=== PATIENT | female | born 1955 | race African-American/Black ===

== ENCOUNTER 2017-10-14 14:14 | Emergency (ER) | payer SELFPAY ==
[~2017-10-14] VITALS: Ht 160 cm; Wt 68.0 kg
[~2017-10-14 14:14] MED LIST: ACULAR5 ML BOTH EYES; AMOXICILLIN500 MG ORAL; AUGMENTIN 500M500 MG ORAL; AUGMENTIN 875-1 EAC1 ORAL; BENTYL10 MG ORAL; DEBROX15 M1 BOTH EARS; DEBROX15 M1 LEFT EAR; IBUPROFEN400 MG ORAL; LISINOPRIL40 MG ORAL; LISINOPRIL5 MG ORAL; MYLANTA30 M1 PO; NORVASC5 MG ORAL; OFLOXACIN5 ML BOTH EYES; PRINIVIL10 MG ORAL; TENORMIN25 MG ORAL
--- NOTE | 2017-10-14 14:51 | Emergency Room Report ---
History of Present Illness General Chief Complaint: Hypertension Source: Patient Present Illness HPI Patient presents with complaints of general weakness Reports that she ran out of her blood pressure medication 2 months ago Has been having dizziness She also complained of visual discomfort off-and-on At time seen completely dark Denies any vomiting denies any abdominal pain Denies any dysuria frequency denies any syncopal episodes denies any focal weakness Allergies: Coded Allergies: NO KNOWN ALLERGIES (Unverified Allergy, Unknown, 04/10/15) Patient History Past Medical History: see triage record Pertinent Family History: none Reviewed Nursing Documentation: PMH: Agreed, PSxH: Agreed Nursing Documentation-PM Past Medical History: No History, Except For Hx Hypertension: Yes Review of Systems All Other Systems: negative except mentioned in HPI Physical Exam Vital Signs Date Time Temp Pulse Resp B/P (MAP) Pulse Ox O2 Delivery O2 Flow Rate FiO2 10/14/17 14:21 98.7 81 16 212/107 99 Room Air 98.8 Sp02 EP Interpretation: reviewed, normal General Appearance: well appearing, no apparent distress Head: normocephalic, atraumatic Eyes: bilateral eye PERRL, bilateral eye EOMI ENT: hearing grossly normal, normal pharynx, TMs + canals normal, uvula midline Neck: full range of motion, supple, no meningismus, no bony tend Respiratory: lungs clear, normal breath sounds, no rhonchi, no respiratory distress, no retraction, no accessory muscle use Cardiovascular #1: normal peripheral pulses, regular rate, rhythm, no edema, no gallop, no JVD, no murmur Gastrointestinal: normal bowel sounds, non tender, soft, no mass, no organomegaly, non-distended, no guarding, no hernia, no pulsatile mass, no rebound Genitourinary: no CVA tenderness Musculoskeletal: normal inspection Neurologic: oriented x3, responsive, 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, motor strength/ tone normal, sensory intact Psychiatric: mood/affect normal Skin: normal color, no rash, warm/dry, palpation normal Lymphatic: normal inspection, no adenopathy Medical Decision Making Diagnostic Impression: Primary Impression: Hypertension ER Course Patient is a fairly complex patient with multiple differential to consideration including but not limited to cardiac cardiopulmonary and vascular emergencies Patient's blood work is appropriate Blood pressure has responded to acute intervention EKG is showing some signs of abnormality however no obvious ST elevation Patient remained chest pain-free Patient reports that she became hypertensive about 16 years ago after she had moved to this country and heard news that her daughter had she has not had appropriate outpatient follow-up since then and will be working to get set up with an outpatient clinic Labs Test 10/14/17 14:50 White Blood Count 6.1 K/UL (4.8-10.8) Red Blood Count 5.08 M/UL (4.20-5.40) Hemoglobin 14.0 G/DL (12.0-16.0) Hematocrit 43.0 % (37.0-47.0) Mean Corpuscular Volume 85 FL (80-99) Mean Corpuscular Hemoglobin 27.6 PG (27.0-31.0) Mean Corpuscular Hemoglobin Concent 32.6 G/DL (32.0-36.0) Red Cell Distribution Width 12.6 % (11.6-14.8) Platelet Count 232 K/UL (150-450) Mean Platelet Volume 9.5 FL (6.5-10.1) Neutrophils (%) (Auto) 47.6 % (45.0-75.0) Lymphocytes (%) (Auto) 39.0 % (20.0-45.0) Monocytes (%) (Auto) 9.6 % (1.0-10.0) Eosinophils (%) (Auto) 2.1 % (0.0-3.0) Basophils (%) (Auto) 1.7 % (0.0-2.0) Sodium Level 144 MMOL/L (136-145) Potassium Level 3.7 MMOL/L (3.5-5.1) Chloride Level 108 MMOL/L (98-107) Carbon Dioxide Level 29 MMOL/L (21-32) Anion Gap 7 mmol/L (5-15) Blood Urea Nitrogen 11 mg/dL (7-18) Creatinine 0.8 MG/DL (0.55-1.30) Estimat Glomerular Filtration Rate > 60 mL/min (>60) Glucose Level 92 MG/DL (74-106) Calcium Level 9.3 MG/DL (8.5-10.1) Total Bilirubin 0.4 MG/DL (0.2-1.0) Aspartate Amino Transf (AST/SGOT) 24 U/L (15-37) Alanine Aminotransferase (ALT/SGPT) 37 U/L (12-78) Alkaline Phosphatase 84 U/L (46-116) Total Creatine Kinase 334 U/L (26-308) Creatine Kinase MB 4.0 NG/ML (0.0-3.6) Creatine Kinase MB Relative Index 1.1 Troponin I 0.000 ng/mL (0.000-0.056) Total Protein 7.1 G/DL (6.4-8.2) Albumin 3.9 G/DL (3.4-5.0) Globulin 3.2 g/dL Albumin/Globulin Ratio 1.2 (1.0-2.7) Lipase 122 U/L (73-393) Urine Opiates Screen Negative (NEGATIVE) Urine Barbiturates Screen Negative (NEGATIVE) Phencyclidine (PCP) Screen Negative (NEGATIVE) Urine Amphetamines Screen Negative (NEGATIVE) Urine Benzodiazepines Screen Negative (NEGATIVE) Urine Cocaine Screen Negative (NEGATIVE) Urine Marijuana (THC) Screen Negative (NEGATIVE) EKG Diagnostic Results Rate: normal Rhythm: NSR ST Segments: no acute changes Rhythm Strip Diag. Results EP Interpretation: yes Rate: 67 Rhythm: NSR, no PVC's, no ectopy Chest X-Ray Diagnostic Results Chest X-Ray Diagnostic Results : Chest X-Ray Ordered: Yes # of Views/Limited/Complete: 1 View Indication: Chest Pain EP Interpretation: Yes Interpretation: no consolidation, no effusion, no pneumothorax, no acute cardiopulmonary disease, other - Borderline cardiomegaly Impression: No acute disease Electronically Signed by: Giuliano Nino DO CT/MRI/US Diagnostic Results CT/MRI/US Diagnostic Results : Impression CT head no acute disease Last Vital Signs Date Time Temp Pulse Resp B/P (MAP) Pulse Ox O2 Delivery O2 Flow Rate FiO2 10/14/17 14:21 98.7 81 16 212/107 99 Room Air 98.8 Status: improved Disposition: HOME, SELF-CARE Condition: Improved Scripts Lisinopril/Hydrochlorothiazide 20-25 Mg Tab (LISINOPRIL-HCTZ 20-25 MG TAB) 1 Each Tablet 1 TAB ORAL DAILY for 30 Days, #30 TAB Prov: Giuliano Nino DO 10/14/17 Additional Instructions: Patient is provided with the discharge instructions notified to follow up with primary doctor in the next 2-3 days otherwise return to the er with any worsening symptoms. Please note that this report is being documented using [employer] technology. This can lead to erroneous entry secondary to incorrect interpretation by the dictating instrument. Giuliano Nino DO Oct 14, 2017 14:50
[2017-10-14 15:05] LABS: BASOPHILS % (AUTO) 1.7 % (0.0-2.0); EOSINOPHILS % (AUTO) 2.1 % (0.0-3.0); MEAN CORPUSCULAR VOLUME 85 FL (80-99); MONOCYTES % (AUTO) 9.6 % (1.0-10.0); NEUTROPHILS % (AUTO) 47.6 % (45.0-75.0); PLATELET COUNT 232 K/UL (150-450); RED BLOOD COUNT 5.08 M/UL (4.20-5.40); RED CELL DISTRIBUTION WIDTH 12.6 % (11.6-14.8); WHITE BLOOD COUNT 6.1 K/UL (4.8-10.8)
[2017-10-14 15:16] LABS: ANION GAP 7 mmol/L (5-15); BLOOD UREA NITROGEN 11 mg/dL (7-18); CALCIUM 9.3 MG/DL (8.5-10.1); CARBON DIOXIDE 29 MMOL/L (21-32); CHLORIDE 108 MMOL/L (98-107); CREATININE 0.8 MG/DL (0.55-1.30); POTASSIUM 3.7 MMOL/L (3.5-5.1); SODIUM 144 MMOL/L (136-145)
[2017-10-14 15:29] LABS: ALANINE AMINOTRANSFERASE 37 U/L (12-78); ALBUMIN 3.9 G/DL (3.4-5.0); ALBUMIN/GLOBULIN RATIO 1.2 (1.0-2.7); ALKALINE PHOSPHATASE 84 U/L (46-116); ASPARTATE AMINO TRANSFERASE 24 U/L (15-37); BILIRUBIN,TOTAL 0.4 MG/DL (0.2-1.0); CREATINE KINASE 334 U/L (26-308)
[2017-10-14] MEDS ORDERED: Lisinopril 20mg tab ORAL ONE (16:00)
[2017-10-14 16:53] VITALS: BP 212/91
[2017-10-14] MEDS ORDERED: LISINOPRIL-HCT1 EAC2 ORAL (17:08)
[2017-10-14 17:52] VITALS: BP 116/50
[2017-10-14 19:12] VITALS: BP 133/57
--- NOTE | 2017-10-15 09:21 | Diagnostic Imaging Report ---
Indication: Chest pain Technique: XRAY Chest 1v Comparison: None Findings: Borderline cardiomegaly. Mediastinal contours are sharp. There is no focal airspace consolidation, pleural effusion or pneumothorax. No acute osseous abnormality appreciated. Impression: No radiographic evidence of acute cardiopulmonary disease. Borderline cardiomegaly.
--- NOTE | 2017-10-15 09:25 | Diagnostic Imaging Report ---
Indication: Headache Technique: Continuous helical CT scanning of the head was performed utilizing automated exposure control without intravenous contrast material. Axial and coronal reconstructions were obtained. Comparison: 04/10/2015 CT dose: Total DLP 1411.27 mGycm; CTDI vol 70.38 mGy Findings: There is no acute intracranial hemorrhage, mass effect or cortical edema. The ventricles, cisterns and sulci are normal for age. Empty sella again noted. Visualized mastoid air cells and paranasal sinuses are unremarkable. No focal lesions of the bony calvarium or soft tissues of the scalp are seen. Atherosclerotic vascular calcifications noted. IMPRESSION: No evidence of acute intracranial hemorrhage, mass effect or cortical edema. MRI may be obtained for more sensitive evaluation as clinically indicated. This corresponds with the statrad preliminary report. The CT scanner at [facility] is accredited by the [employer] [place] and the scans are performed using protocols designed to limit radiation exposure to as low as reasonably achievable to attain images of sufficient resolution adequate for diagnostic evaluation.
--- NOTE | 2017-10-17 18:44 | Cardiology Report ---
APPROVED REPORT EKG Measurement Heart [id number] Normal sinus rhythm Possible Left atrial enlargement Left ventricular hypertrophy Nonspecific ST and T wave abnormality Abnormal ECG
== END 2017-10-14 19:15 | disposition home or self-care (01) ==
LOC: EMR 14:59 → EDBEDREQ 18:41 → CANBEDREQ 18:53 → EMR 19:15
DX: I10 Essential (primary) hypertension (principal)
CPT/HCPCS: 36415; 70450; 71045; 80053; 80307; 82550; 82553; 83690; 84484; 85025; 93005; 99284; J0360

== ENCOUNTER 2018-04-21 16:09 | Emergency (ER) | payer MEDICAID ==
[~2018-04-21] VITALS: Ht 162.6 cm; Wt 54.4 kg
[~2018-04-21 16:09] MED LIST changes: +LISINOPRIL-HCT1 EAC2 ORAL
[2018-04-21 16:45] VITALS: BP 204/99
[2018-04-21] MEDS ORDERED: Acetaminophen 500mg (ES) tab PO ONE (17:00)
[2018-04-21] MEDS ORDERED: Neosporin Oint Ud Pkt TOP ONE (17:00)
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
[2018-04-21] MEDS ORDERED: IBUPROFEN600 MG ORAL (17:55)
[2018-04-21] MEDS ORDERED: BACITRACIN15 GM TOPIC (17:55)
[2018-04-21] MEDS ORDERED: TRAMADOL HCL50 MG ORAL (17:55)
[2018-04-21 18:05] VITALS: BP 182/94
[2018-04-21 18:12] VITALS: BP 182/94
== END 2018-04-21 18:12 | disposition home or self-care (01) ==
LOC: EMR 16:56 → MERGE 16:56 → EMR 18:12
DX: S63.633A Sprain of interphalangeal joint of left middle finger, initial encounter (principal); S00.01XA Abrasion of scalp, initial encounter; S10.91XA Abrasion of unspecified part of neck, initial encounter; S20.419A Abrasion of unspecified back wall of thorax, initial encounter; Y04.2XXA Assault by strike against or bumped into by another person, initial encounter; Y93.89 Activity, other specified; Y92.488 Other paved roadways as the place of occurrence of the external cause; I10 Essential (primary) hypertension
CPT/HCPCS: 70450; 99284